=== PATIENT | female | born 2000 | race Caucasian/White ===

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

== ENCOUNTER 2020-06-21 08:51 | Emergency (ER) | payer OTHER ==
[2020-06-21 08:58] VITALS: BP 107/66; PULSE 83; RESP 18; TEMP 98.6
--- NOTE | 2020-06-21 09:18 | ED ---
General Adult HPI - General Chief complaint: Upper Respiratory Infection Stated complaint: Upper respiratory Time Seen by Provider: 06/21/20 08:58 Source: patient, RN notes reviewed Mode of arrival: ambulatory Limitations: no limitations - History of Present Illness Initial comments: Patient is a pleasant 20-year-old female presenting to the emergency department with concerns for upper respiratory symptoms. Symptoms been occurring around 3 days. Patient states she did have cold symptoms a week ago however those have resolved. Patient does complain of occasional cough with occasional yellow sputum. Patient has myalgias, more of her upper extremities and lower extremity. No dyspnea. No fevers. No history of chronic lung problems. - Related Data Home Medications Medication Instructions Recorded Confirmed Albuterol Inhaler (Mhu) [Ventolin 2 puff INHALATION RT-QID 09/10/18 09/10/18 Hfa Inhaler] Ibuprofen [Motrin Ib] 600 mg PO DAILY 09/10/18 09/10/18 Previous Rx's Medication Instructions Recorded Cefpodoxime Proxetil [Vantin] 200 mg PO Q12HR 10 Days #20 tab 10/03/18 Ondansetron Odt [Zofran Odt] 4 mg PO Q8HR PRN #12 tab 10/03/18 Nitrofurantoin Monohyd/M-Cryst 100 mg PO Q12HR #14 cap 04/06/19 [Macrobid] Amoxicillin/Potassium Clav 1 tab PO Q12HR #20 tab 10/24/19 [Augmentin 875-125 Tablet] Albuterol Sulfate [Albuterol 2 puff INHALATION Q6H PRN #1 06/21/20 Sulfate Hfa] inhaler Allergies Allergy/AdvReac Type Severity Reaction Status Date / Time bee venom protein (honey bee) Allergy Swelling Verified 06/21/20 08:57 Review of Systems ROS Statement: Those systems with pertinent positive or pertinent negative responses have been documented in the HPI. ROS Other: All systems not noted in ROS Statement are negative. Constitutional: Denies: fever Eyes: Denies: eye pain ENT: Denies: ear pain Respiratory: Reports: cough Cardiovascular: Denies: chest pain Endocrine: Reports: fatigue Gastrointestinal: Denies: abdominal pain Genitourinary: Denies: dysuria Musculoskeletal: Denies: back pain Skin: Denies: rash Neurological: Denies: weakness Past Medical History Past Medical History: No Reported History History of Any Multi-Drug Resistant Organisms: None Reported Past Surgical History: Tonsillectomy Past Psychological History: Bipolar, Depression, PTSD Smoking Status: Current every day smoker Past Alcohol Use History: Occasional Past Drug Use History: Marijuana General Exam Limitations: no limitations General appearance: alert, in no apparent distress Head exam: Present: normocephalic Eye exam: Present: normal appearance, PERRL ENT exam: Present: other (Mild pharyngeal cobblestoning) Neck exam: Present: normal inspection Respiratory exam: Present: normal lung sounds bilaterally Cardiovascular Exam: Present: regular rate, normal rhythm GI/Abdominal exam: Present: soft. Absent: tenderness Extremities exam: Present: normal inspection Neurological exam: Present: alert Psychiatric exam: Present: normal affect, normal mood Skin exam: Present: normal color Course Vital Signs 06/21/20 08:55 Temperature 98.6 F Pulse Rate 83 Respiratory 18 Rate Blood Pressure 107/66 O2 Sat by Pulse 98 Oximetry Medical Decision Making - Medical Decision Making Patient has refused testing for influenza and coronavirus. Patient reevaluated and resting comfortably in bed. Patient updated. Patient does request inhaler. - Radiology Data Radiology results: image reviewed (Chest x-ray shows no acute process) Disposition Clinical Impression: Bronchitis Disposition: HOME SELF-CARE Condition: Stable Instructions (If sedation given, give patient instructions): Acute Bronchitis (ED) Additional Instructions: Please follow-up with primary care physician in the next couple of days for recheck. Return for difficulty in breathing, uncontrolled fevers, worsening or changing symptoms or other concerns. Prescription for inhaler sent to [facility] Prescriptions: Albuterol Sulfate [Albuterol Sulfate Hfa] 2 puff INHALATION Q6H PRN #1 inhaler PRN Reason: Shortness Of Breath Is patient prescribed a controlled substance at d/c from ED?: No Referrals: Melquiades Aguilar Jr, DO [Primary Care Provider] - 1-2 days Time of Disposition: 10:17
--- NOTE | 2020-06-21 09:27 | XR ---
EXAMINATION TYPE: XR chest 2V DATE OF EXAM: 06/21/2020 COMPARISON: NONE TECHNIQUE: PA and lateral views submitted. HISTORY: Cough FINDINGS: The lungs are clear and there is no pneumothorax, pleural effusion, or focal pneumonia. Heart size normal. No overt failure. IMPRESSION: 1. No acute process.
== END 2020-06-21 10:34 | disposition home or self-care (01) ==
LOC: EC 08:51
DX: J40 Bronchitis, not specified as acute or chronic (principal); F17.200 Nicotine dependence, unspecified, uncomplicated; Z79.899 Other long term (current) drug therapy; Z79.1 Long term (current) use of non-steroidal anti-inflammatories (NSAID); Z91.030 Bee allergy status
CPT/HCPCS: 71046; 99283

== ENCOUNTER 2020-06-30 09:06 | Emergency (ER) | payer OTHER ==
[2020-06-30 09:18] VITALS: RESP 16
[2020-06-30] MEDS ORDERED: KETOROLAC 15 MG/ML 1 ML VIAL IVP STA (10:02)
--- NOTE | 2020-06-30 10:28 | ED ---
URI HPI - General Chief Complaint: Upper Respiratory Infection Stated Complaint: right side pain Time Seen by Provider: 06/30/20 09:36 Source: patient, RN notes reviewed, old records reviewed Mode of arrival: ambulatory Limitations: no limitations - History of Present Illness Initial Comments: 20 year old female with right rib pain after being diagnosed with brochitis last week. She was given inhaler. She reports no change in cough. She denies nause a, vomiting and no other complaints. She states she has no abdominal pain. Pt pain is worse with movement or taking a breath. - Related Data Home Medications Medication Instructions Recorded Confirmed Albuterol Sulfate [Proair Hfa] 2 puff INHALATION RT-QID PRN 06/30/20 06/30/20 Previous Rx's Medication Instructions Recorded Ibuprofen [Motrin] 600 mg PO Q8HR PRN #20 tab 06/30/20 methylPREDNISolone Dose Pack 4 mg PO DIRECTED #21 package 06/30/20 [Medrol Dose Pack] Allergies Allergy/AdvReac Type Severity Reaction Status Date / Time bee venom protein (honey bee) Allergy Swelling Verified 06/30/20 10:35 Review of Systems ROS Statement: Those systems with pertinent positive or pertinent negative responses have been documented in the HPI. ROS Other: All systems not noted in ROS Statement are negative. Past Medical History Past Medical History: No Reported History History of Any Multi-Drug Resistant Organisms: None Reported Past Surgical History: Tonsillectomy Past Psychological History: Bipolar, Depression, PTSD Smoking Status: Former smoker Past Alcohol Use History: Occasional Past Drug Use History: Marijuana General Exam - General Exam Comments Initial Comments: 20 year old female, no distress. Limitations: no limitations General appearance: alert, in no apparent distress Head exam: Present: atraumatic, normocephalic, normal inspection Eye exam: Present: normal appearance, PERRL, EOMI. Absent: scleral icterus, conjunctival injection, periorbital swelling ENT exam: Present: normal exam, mucous membranes moist Neck exam: Present: normal inspection. Absent: tenderness, meningismus, l ymphadenopathy Respiratory exam: Present: normal lung sounds bilaterally, other (rigt rib 9- 10). Absent: respiratory distress, wheezes, rales, rhonchi, stridor Cardiovascular Exam: Present: regular rate, normal rhythm, normal heart sounds. Absent: systolic murmur, diastolic murmur, rubs, gallop, clicks GI/Abdominal exam: Present: soft, normal bowel sounds. Absent: distended, tenderness, guarding, rebound, rigid Extremities exam: Present: normal inspection, full ROM, normal capillary refill. Absent: tenderness, pedal edema, joint swelling, calf tenderness Back exam: Present: normal inspection Neurological exam: Present: alert, oriented X3, CN II-XII intact Psychiatric exam: Present: normal affect, normal mood Course Vital Signs 06/30/20 06/30/20 09:15 12:00 Temperature 98.1 F 97.8 F Pulse Rate 84 78 Respiratory 16 16 Rate Blood Pressure 108/70 101/78 O2 Sat by Pulse 97 99 Oximetry Medical Decision Making - Medical Decision Making 20 year old female, CC of Rib pain after bronchitis. Pt has normal CXR and labs are normal. Discussed costochondritis diagnosis and she will be followed up with PCP. Pt will be given steroids and PCP follow up. - Lab Data Result diagrams: 06/30/20 10:14 06/30/20 10:14 Lab Results 06/30/20 06/30/20 06/30/20 Range/Units 10:14 10:14 10:14 WBC 11.8 H (4.0-11.0) k/uL RBC 4.97 (3.80-5.40) m/uL Hgb 13.7 (11.4-16.0) gm/dL Hct 42.0 (34.0-46.0) % MCV 84.5 (80.0-100.0) fL MCH 27.6 (25.0-35.0) pg MCHC 32.6 (31.0-37.0) g/dL RDW 12.7 (11.5-15.5) % Plt Count 464 H (150-450) k/uL Neutrophils % 74 % Lymphocytes % 18 % Monocytes % 5 % Eosinophils % 1 % Basophils % 0 % Neutrophils # 8.8 H (1.3-7.7) k/uL Lymphocytes # 2.1 (1.0-4.8) k/uL Monocytes # 0.6 (0-1.0) k/uL Eosinophils # 0.2 (0-0.7) k/uL Basophils # 0.1 (0-0.2) k/uL Sodium 138 (137-145) mmol/L Potassium 4.1 (3.5-5.1) mmol/L Chloride 105 (98-107) mmol/L Carbon Dioxide 27 (22-30) mmol/L Anion Gap 6 mmol/L BUN 12 (7-17) mg/dL Creatinine 0.58 (0.52-1.04) mg/dL Est GFR (CKD-EPI)AfAm >90 (>60 ml/min/1.73 sqM) Est GFR (CKD-EPI)NonAf >90 (>60 ml/min/1.73 sqM) Glucose 80 (74-99) mg/dL Calcium 9.8 (8.4-10.2) mg/dL Total Bilirubin 0.4 (0.2-1.3) mg/dL AST 18 (14-36) U/L ALT 10 (4-34) U/L Alkaline Phosphatase 75 (38-126) U/L Total Protein 6.9 (6.3-8.2) g/dL Albumin 4.0 (3.5-5.0) g/dL Urine Color Yellow Urine Appearance Cloudy H (Clear) Urine pH 6.5 (5.0-8.0) Ur Specific [place] 1.020 (1.001-1.035) Urine Protein Trace H (Negative) Urine Glucose (UA) Negative (Negative) Urine Ketones Negative (Negative) Urine Blood Negative (Negative) Urine Nitrite Negative (Negative) Urine Bilirubin Negative (Negative) Urine Urobilinogen <2.0 (<2.0) mg/dL Ur Leukocyte Esterase Moderate H (Negative) Urine WBC 7 H (0-5) /hpf Ur Squamous Epith Cells 17 H (0-4) /hpf Urine Bacteria Rare H (None) /hpf Urine Mucus Moderate H (None) /hpf Urine HCG, Qual (Not Detectd) 06/30/20 Range/Units 10:14 WBC (4.0-11.0) k/uL RBC (3.80-5.40) m/uL Hgb (11.4-16.0) gm/dL Hct (34.0-46.0) % MCV (80.0-100.0) fL MCH (25.0-35.0) pg MCHC (31.0-37.0) g/dL RDW (11.5-15.5) % Plt Count (150-450) k/uL Neutrophils % % Lymphocytes % % Monocytes % % Eosinophils % % Basophils % % Neutrophils # (1.3-7.7) k/uL Lymphocytes # (1.0-4.8) k/uL Monocytes # (0-1.0) k/uL Eosinophils # (0-0.7) k/uL Basophils # (0-0.2) k/uL Sodium (137-145) mmol/L Potassium (3.5-5.1) mmol/L Chloride (98-107) mmol/L Carbon Dioxide (22-30) mmol/L Anion Gap mmol/L BUN (7-17) mg/dL Creatinine (0.52-1.04) mg/dL Est GFR (CKD-EPI)AfAm (>60 ml/min/1.73 sqM) Est GFR (CKD-EPI)NonAf (>60 ml/min/1.73 sqM) Glucose (74-99) mg/dL Calcium (8.4-10.2) mg/dL Total Bilirubin (0.2-1.3) mg/dL AST (14-36) U/L ALT (4-34) U/L Alkaline Phosphatase (38-126) U/L Total Protein (6.3-8.2) g/dL Albumin (3.5-5.0) g/dL Urine Color Urine Appearance (Clear) Urine pH (5.0-8.0) Ur Specific [place] (1.001-1.035) Urine Protein (Negative) Urine Glucose (UA) (Negative) Urine Ketones (Negative) Urine Blood (Negative) Urine Nitrite (Negative) Urine Bilirubin (Negative) Urine Urobilinogen (<2.0) mg/dL Ur Leukocyte Esterase (Negative) Urine WBC (0-5) /hpf Ur Squamous Epith Cells (0-4) /hpf Urine Bacteria (None) /hpf Urine Mucus (None) /hpf Urine HCG, Qual Not Detected (Not Detectd) - Radiology Data Radiology results: report reviewed CXR is negative for acute process. Disposition Clinical Impression: Pleurisy, Rib pain on right side, Hx of bronchitis Disposition: HOME SELF-CARE Condition: Good Instructions (If sedation given, give patient instructions): Upper Respiratory Infection (ED) Additional Instructions: Take medications as prescribed. Patient should gentle stretching. Follow up with primary care doctor. Return to the ED if any alarming signs or symptoms oc cur. Prescriptions: methylPREDNISolone Dose Pack [Medrol Dose Pack] 4 mg PO DIRECTED #21 package Ibuprofen [Motrin] 600 mg PO Q8HR PRN #20 tab PRN Reason: Pain Is patient prescribed a controlled substance at d/c from ED?: No Referrals: Melquiades Aguilar Jr, DO [Primary Care Provider] - 1-2 days Time of Disposition: 11:39
--- NOTE | 2020-06-30 10:39 | XR ---
EXAMINATION TYPE: XR chest 2V DATE OF EXAM: 06/30/2020 COMPARISON: 06/21/2020 HISTORY: 20-year-old female right rib pain TECHNIQUE: PA and lateral views FINDINGS: The cardiomediastinal silhouette, aorta, and pulmonary vasculature are within normal limits. Lungs an d pleural spaces are clear. IMPRESSION: No acute cardiopulmonary process.
[2020-06-30 10:55] LABS: Basophils # (A) 0.1 k/uL (0-0.2); Basophils % (A) 0 %; Eosinophils # (A) 0.2 k/uL (0-0.7); Eosinophils % (A) 1 %; HGB 13.7 gm/dL (11.4-16.0); Lymphocytes # (A) 2.1 k/uL (1.0-4.8); Lymphocytes % (A) 18 %; MCH 27.6 pg (25.0-35.0); MCHC 32.6 g/dL (31.0-37.0); MCV 84.5 fL (80.0-100.0); Mean Platelet Volume 8.5; Monocytes # (A) 0.6 k/uL (0-1.0); Monocytes % (A) 5 %; Neutrophils # (A) 8.8 k/uL (1.3-7.7); Neutrophils % (A) 74 %; Platelet Count 464 k/uL (150-450); RBC 4.97 m/uL (3.80-5.40); RDW 12.7 % (11.5-15.5); WBC 11.8 k/uL (4.0-11.0)
[2020-06-30 10:58] LABS: Appearance,Urine Cloudy (Clear); Bacteria,Urine Rare /hpf; Bilirubin,Urine Negative (Negative); Blood,Urine Negative (Negative); Color,Urine Yellow; Glucose,Urine (UA) Negative (Negative); Ketones,Urine Negative (Negative); Leukocyte Esterase,Urine Moderate (Negative); Mucus,Urine Moderate /hpf; Nitrite,Urine Negative (Negative); PH, Urine 6.5 (5.0-8.0); Protein,Urine Trace (Negative); Squamous Epithelial Cell,Urine 17 /hpf (0-4); Urobilinogen,Urine <2.0 mg/dL (<2.0); WBC,Urine 7 /hpf (0-5)
[2020-06-30 11:05] LABS: Potassium 4.1 mmol/L (3.5-5.1)
[2020-06-30 11:06] LABS: ALT 10 U/L (4-34); AST 18 U/L (14-36); African American GFR (CKD) >90 (>60 ml/min/1.73 sqM); Alkaline Phosphatase 75 U/L (38-126); Anion Gap 6 mmol/L; Blood Urea Nitrogen 12 mg/dL (7-17); Calcium 9.8 mg/dL (8.4-10.2); Carbon Dioxide 27 mmol/L (22-30); Chloride 105 mmol/L (98-107); Glucose 80 mg/dL (74-99); Non-African American GFR(CKD) >90 (>60 ml/min/1.73 sqM); Sodium 138 mmol/L (137-145); Total Bilirubin 0.4 mg/dL (0.2-1.3); Total Protein 6.9 g/dL (6.3-8.2)
[2020-06-30 12:01] VITALS: BP 101/78; PULSE 78; TEMP 97.8
== END 2020-06-30 12:00 | disposition home or self-care (01) ==
LOC: EC 09:06
DX: R09.1 Pleurisy (principal); R07.81 Pleurodynia; Z87.09 Personal history of other diseases of the respiratory system; Z91.030 Bee allergy status; Z87.891 Personal history of nicotine dependence
CPT/HCPCS: 36415; 80053; 85025; 81001; 81025; 71046; 99284; 96374; J1885

== ENCOUNTER 2020-11-09 12:44 | Inpatient (IN) | payer MEDICAID, OTHER ==
--- NOTE | 2020-11-09 13:12 | ED ---
General Adult HPI - General Chief complaint: Psychiatric Symptoms Stated complaint: Overdose/Mental Health Time Seen by Provider: 11/09/20 12:56 Source: patient - History of Present Illness Initial comments: Dictation was produced using [employer] dictation software. please excuse any grammatical, word or spelling errors. This patient was cared for during a federal and state declared state of emerge ncy secondary to Covid 19 Chief Complaint: 20-year-old female presents with overdose History of Present Illness: Patient is a 20-year-old female she has reported history of schizophrenia and depression. Patient states one hour ago she took a handful of Flexeril pills to try to harm herself. At she's been having a lot of personal stress. No homicidal ideation. No auditory or visual hallucinations. She does not know exactly what the dosage of her pills were that she says there are 5 mg pills. She doesn't examination to purchase a handful. The ROS documented in this emergency department record has been reviewed and confirmed by me. Those systems with pertinent positive or negative responses have been documented in the HPI. All other systems are other negative and/or noncontributory. PHYSICAL EXAM: General Impression: Alert and oriented x3, not in acute distress HEENT: Normocephalic atraumatic, extra-ocular movements intact, pupils equal and reactive to light bilaterally, mucous membranes moist. Cardiovascular: Heart regular rate and rhythm Chest: Able to complete full sentences, no retractions, no tachypnea Abdomen: abdomen soft, non-tender, non-distended, no organomegaly Musculoskeletal: Pulses present and equal in all extremities, no peripheral edema Motor: no focal deficits noted Neurological: CN II-XII grossly intact, no focal motor or sensory deficits noted Skin: Intact with no visualized rashes Psych: Normal affect and mood ED course: 20 y Old female presents with cyclobenzaprine overdose. Patient is well-appearing at bedside. She does not have any symptoms to suggest toxidrome. Lavatory evaluation obtained. CBC unremarkable. Metabolic panel shows mild acidosis with a bicarb of 17. Gap is 12. Urinalysis is contaminated but with 67 white blood cells. Urine drug screen is positive for marijuana. Covid 19 is negative. Urine hCG is negative. Poison control was contacted recommended checking a repeat EKG at 6 PM prior to medical clearance. EKG interpretation: Ventricular rate 97, normal sinus rhythm,. Interval 122, QRS 84, QTC 441. No MO prolongation, no QTC prolongation, no ST or T-wave changes noted. . Overall, this EKG is unremarkable Six-hour EKG was obtained showing no acute processes. Patient medically cleared for EPS evaluation. Patient was evaluated by EPS. Patient be admitted to inpatient psychiatry. - Related Data Home Medications Medication Instructions Recorded Confirmed Albuterol Sulfate [Proair Hfa] 2 puff INHALATION RT-QID PRN 06/30/20 06/30/20 Previous Rx's Medication Instructions Recorded Ibuprofen [Motrin] 600 mg PO Q8HR PRN #20 tab 06/30/20 methylPREDNISolone Dose Pack 4 mg PO DIRECTED #21 package 06/30/20 [Medrol Dose Pack] Allergies Allergy/AdvReac Type Severity Reaction Status Date / Time bee venom protein (honey bee) Allergy Swelling Verified 11/09/20 14:49 Review of Systems ROS Statement: Those systems with pertinent positive or pertinent negative responses have been documented in the HPI. ROS Other: All systems not noted in ROS Statement are negative. Past Medical History Past Medical History: No Reported History History of Any Multi-Drug Resistant Organisms: None Reported Past Surgical History: Tonsillectomy Past Psychological History: Bipolar, Depression, PTSD Smoking Status: Former smoker Past Alcohol Use History: Occasional Past Drug Use History: Marijuana Course Vital Signs 11/09/20 11/09/20 11/09/20 13:00 13:30 14:50 Temperature 98.0 F Pulse Rate 130 H 110 H 100 Respiratory 18 20 Rate Blood Pressure 145/80 128/78 O2 Sat by Pulse 96 100 Oximetry 11/09/20 11/09/20 11/09/20 15:30 16:30 17:59 Temperature 97.8 F Pulse Rate 110 H 105 H 80 Respiratory 20 20 16 Rate Blood Pressure 112/80 108/78 O2 Sat by Pulse 98 98 Oximetry Medical Decision Making - Lab Data Result diagrams: 11/09/20 13:50 11/09/20 13:50 Lab Results 11/09/20 11/09/20 11/09/20 Range/Units 13:50 13:50 13:50 WBC 9.6 (4.0-11.0) k/uL RBC 5.02 (3.80-5.40) m/uL Hgb 13.7 (11.4-16.0) gm/dL Hct 40.2 (34.0-46.0) % MCV 80.1 (80.0-100.0) fL MCH 27.4 (25.0-35.0) pg MCHC 34.2 (31.0-37.0) g/dL RDW 13.6 (11.5-15.5) % Plt Count 296 (150-450) k/uL MPV 9.2 Neutrophils % 75 % Lymphocytes % 18 % Monocytes % 5 % Eosinophils % 1 % Basophils % 0 % Neutrophils # 7.2 (1.3-7.7) k/uL Lymphocytes # 1.7 (1.0-4.8) k/uL Monocytes # 0.4 (0-1.0) k/uL Eosinophils # 0.1 (0-0.7) k/uL Basophils # 0.0 (0-0.2) k/uL Sodium (137-145) mmol/L Potassium (3.5-5.1) mmol/L Chloride (98-107) mmol/L Carbon Dioxide (22-30) mmol/L Anion Gap mmol/L BUN (7-17) mg/dL Creatinine (0.52-1.04) mg/dL Est GFR (CKD-EPI)AfAm (>60 ml/min/1.73 sqM) Est GFR (CKD-EPI)NonAf (>60 ml/min/1.73 sqM) Glucose (74-99) mg/dL Calcium (8.4-10.2) mg/dL Total Bilirubin (0.2-1.3) mg/dL AST (14-36) U/L ALT (4-34) U/L Alkaline Phosphatase (38-126) U/L Total Protein (6.3-8.2) g/dL Albumin (3.5-5.0) g/dL Urine Color Urine Appearance (Clear) Urine pH (5.0-8.0) Ur Specific [place] (1.001-1.035) Urine Protein (Negative) Urine Glucose (UA) (Negative) Urine Ketones (Negative) Urine Blood (Negative) Urine Nitrite (Negative) Urine Bilirubin (Negative) Urine Urobilinogen (<2.0) mg/dL Ur Leukocyte Esterase (Negative) Urine RBC (0-5) /hpf Urine WBC (0-5) /hpf Ur Squamous Epith Cells (0-4) /hpf Urine Bacteria (None) /hpf Urine Mucus (None) /hpf Urine HCG, Qual Not Detected (Not Detectd) Salicylates mg/dL Urine Opiates Screen Not Detected (NotDetected) Ur Oxycodone Screen Not Detected (NotDetected) Urine Methadone Screen Not Detected (NotDetected) Ur Propoxyphene Screen Not Detected (NotDetected) Acetaminophen ug/mL Ur Barbiturates Screen Not Detected (NotDetected) U Tricyclic Antidepress Not Detected (NotDetected) Ur Phencyclidine Scrn Not Detected (NotDetected) Ur Amphetamines Screen Not Detected (NotDetected) U Methamphetamines Scrn Not Detected (NotDetected) U Benzodiazepines Scrn Not Detected (NotDetected) Urine Cocaine Screen Not Detected (NotDetected) U Marijuana (THC) Screen Detected H (NotDetected) Serum Alcohol mg/dL Coronavirus (PCR) (Not Detectd) 11/09/20 11/09/20 11/09/20 Range/Units 13:50 13:50 14:21 WBC (4.0-11.0) k/uL RBC (3.80-5.40) m/uL Hgb (11.4-16.0) gm/dL Hct (34.0-46.0) % MCV (80.0-100.0) fL MCH (25.0-35.0) pg MCHC (31.0-37.0) g/dL RDW (11.5-15.5) % Plt Count (150-450) k/uL MPV Neutrophils % % Lymphocytes % % Monocytes % % Eosinophils % % Basophils % % Neutrophils # (1.3-7.7) k/uL Lymphocytes # (1.0-4.8) k/uL Monocytes # (0-1.0) k/uL Eosinophils # (0-0.7) k/uL Basophils # (0-0.2) k/uL Sodium 137 (137-145) mmol/L Potassium 3.8 (3.5-5.1) mmol/L Chloride 108 H (98-107) mmol/L Carbon Dioxide 17 L (22-30) mmol/L Anion Gap 12 mmol/L BUN 9 (7-17) mg/dL Creatinine 0.55 (0.52-1.04) mg/dL Est GFR (CKD-EPI)AfAm >90 (>60 ml/min/1.73 sqM) Est GFR (CKD-EPI)NonAf >90 (>60 ml/min/1.73 sqM) Glucose 104 H (74-99) mg/dL Calcium 9.8 (8.4-10.2) mg/dL Total Bilirubin 0.6 (0.2-1.3) mg/dL AST 19 (14-36) U/L ALT 14 (4-34) U/L Alkaline Phosphatase 59 (38-126) U/L Total Protein 7.4 (6.3-8.2) g/dL Albumin 4.6 (3.5-5.0) g/dL Urine Color Light Yellow Urine Appearance Cloudy H (Clear) Urine pH 6.0 (5.0-8.0) Ur Specific [place] 1.006 (1.001-1.035) Urine Protein Trace H (Negative) Urine Glucose (UA) Negative (Negative) Urine Ketones Trace H (Negative) Urine Blood Large H (Negative) Urine Nitrite Negative (Negative) Urine Bilirubin Negative (Negative) Urine Urobilinogen <2.0 (<2.0) mg/dL Ur Leukocyte Esterase Large H (Negative) Urine RBC 17 H (0-5) /hpf Urine WBC 67 H (0-5) /hpf Ur Squamous Epith Cells 16 H (0-4) /hpf Urine Bacteria Rare H (None) /hpf Urine Mucus Rare H (None) /hpf Urine HCG, Qual (Not Detectd) Salicylates <1.0 mg/dL Urine Opiates Screen (NotDetected) Ur Oxycodone Screen (NotDetected) Urine Methadone Screen (NotDetected) Ur Propoxyphene Screen (NotDetected) Acetaminophen <10.0 ug/mL Ur Barbiturates Screen (NotDetected) U Tricyclic Antidepress (NotDetected) Ur Phencyclidine Scrn (NotDetected) Ur Amphetamines Screen (NotDetected) U Methamphetamines Scrn (NotDetected) U Benzodiazepines Scrn (NotDetected) Urine Cocaine Screen (NotDetected) U Marijuana (THC) Screen (NotDetected) Serum Alcohol <10 mg/dL Coronavirus (PCR) Not Detected (Not Detectd) Disposition Clinical Impression: Overdose, Suicidal overdose Disposition: ADMITTED IP TO THIS [facility] Condition: Fair Referrals: None,Stated [Primary Care Provider] - 1-2 days Decision Time: 20:18
[2020-11-09 14:08] LABS: Basophils % (A) 0 %; Eosinophils # (A) 0.1 k/uL (0-0.7); Eosinophils % (A) 1 %; HCT 40.2 % (34.0-46.0); HGB 13.7 gm/dL (11.4-16.0); Lymphocytes # (A) 1.7 k/uL (1.0-4.8); Lymphocytes % (A) 18 %; MCH 27.4 pg (25.0-35.0); MCHC 34.2 g/dL (31.0-37.0); MCV 80.1 fL (80.0-100.0); Mean Platelet Volume 9.2; Monocytes # (A) 0.4 k/uL (0-1.0); Monocytes % (A) 5 %; Neutrophils # (A) 7.2 k/uL (1.3-7.7); Neutrophils % (A) 75 %; Platelet Count 296 k/uL (150-450); RBC 5.02 m/uL (3.80-5.40); RDW 13.6 % (11.5-15.5); WBC 9.6 k/uL (4.0-11.0)
[2020-11-09 14:17] LABS: ALT 14 U/L (4-34); AST 19 U/L (14-36); Acetaminophen <10.0 ug/mL; African American GFR (CKD) >90 (>60 ml/min/1.73 sqM); Albumin 4.6 g/dL (3.5-5.0); Alcohol <10 mg/dL; Alkaline Phosphatase 59 U/L (38-126); Anion Gap 12 mmol/L; Appearance,Urine Cloudy (Clear); Bacteria,Urine Rare /hpf; Bilirubin,Urine Negative (Negative); Blood Urea Nitrogen 9 mg/dL (7-17); Blood,Urine Large (Negative); Calcium 9.8 mg/dL (8.4-10.2); Carbon Dioxide 17 mmol/L (22-30); Chloride 108 mmol/L (98-107); Color,Urine Light Yellow; Glucose 104 mg/dL (74-99); Glucose,Urine (UA) Negative (Negative); Ketones,Urine Trace (Negative); Leukocyte Esterase,Urine Large (Negative); Mucus,Urine Rare /hpf; Nitrite,Urine Negative (Negative); Non-African American GFR(CKD) >90 (>60 ml/min/1.73 sqM); Potassium 3.8 mmol/L (3.5-5.1); Protein,Urine Trace (Negative); RBC,Urine 17 /hpf (0-5); Salicylate <1.0 mg/dL; Sodium 137 mmol/L (137-145); Specific Gravity,Urine 1.006 (1.001-1.035); Squamous Epithelial Cell,Urine 16 /hpf (0-4); Total Bilirubin 0.6 mg/dL (0.2-1.3); Total Protein 7.4 g/dL (6.3-8.2); Urobilinogen,Urine <2.0 mg/dL (<2.0); WBC,Urine 67 /hpf (0-5)
[2020-11-09 14:20] LABS: Amphetamine Screen,Urine Not Detected (NotDetected); Barbiturate Screen,Urine Not Detected (NotDetected); Benzodiazepines Screen,Urine Not Detected (NotDetected); Cocaine Screen,Urine Not Detected (NotDetected); Methadone Screen, Urine Not Detected (NotDetected); Opiate Screen,Urine Not Detected (NotDetected); Oxycodone Screen, Urine Not Detected (NotDetected); Phencyclidine Screen,Urine Not Detected (NotDetected); Tricyclic Antidepressant,Urine Not Detected (NotDetected); Urn Cannabinoid Scrn Detected (NotDetected)
[2020-11-09] MEDS ORDERED: MAGNESIUM HYDROXIDE 2,400 MG/10 ML CUP PO PRN (21:51)
[2020-11-09] MEDS ORDERED: LORazepam 1 MG TAB PO PRN (21:51)
[2020-11-09] MEDS ORDERED: MAG HYDROX/AL HYDROX/SIMETH 30 ML CUP PO PRN (21:51)
[2020-11-09] MEDS ORDERED: LORazepam 2 MG/ML INJ IM PRN (21:54)
[2020-11-09] MEDS ORDERED: HALOPERIDOL LACTATE 5 MG/ML 1 ML VIAL IM PRN (21:54)
[2020-11-09] MEDS ORDERED: ALBUTEROL HFA INHALER INHALATION PRN (21:55)
[2020-11-10 08:13] LABS: Cholesterol 170 mg/dL (<200); HDL Cholesterol 63 mg/dL (40-60); LDL Cholesterol,Calculated 95 mg/dL (0-99); Triglycerides 62 mg/dL (<150)
[2020-11-10] MEDS ORDERED: MELATONIN 5 MG TABLET PO PRN (11:29)
[2020-11-10] MEDS ORDERED: hydrOXYzine pamoate 25 MG CAP PO PRN (11:30)
--- NOTE | 2020-11-10 11:43 | P.HP ---
Psychiatric H&P - . H&P Date: 11/10/20 History & Physical: Allergies Allergy/AdvReac Type Severity Reaction Status Date / Time bee venom protein (honey bee) Allergy Swelling Verified 11/10/20 02:06 Vital Signs Temp 97.4 F L 11/10/20 06:30 Pulse 132 H 11/10/20 06:30 Resp 16 11/10/20 06:30 BP 118/57 11/10/20 06:30 Pulse Ox 98 11/09/20 21:00 Intake & Output 11/09/20 11/10/20 11/10/20 18:59 06:59 18:59 Weight 72.575 kg 74.1 kg Laboratory Last Values WBC 9.6 k/uL (4.0-11.0) 11/09/20 13:50 RBC 5.02 m/uL (3.80-5.40) 11/09/20 13:50 Hgb 13.7 gm/dL (11.4-16.0) 11/09/20 13:50 Hct 40.2 % (34.0-46.0) 11/09/20 13:50 MCV 80.1 fL (80.0-100.0) 11/09/20 13:50 MCH 27.4 pg (25.0-35.0) 11/09/20 13:50 MCHC 34.2 g/dL (31.0-37.0) 11/09/20 13:50 RDW 13.6 % (11.5-15.5) 11/09/20 13:50 Plt Count 296 k/uL (150-450) 11/09/20 13:50 MPV 9.2 11/09/20 13:50 Neutrophils % 75 % 11/09/20 13:50 Lymphocytes % 18 % 11/09/20 13:50 Monocytes % 5 % 11/09/20 13:50 Eosinophils % 1 % 11/09/20 13:50 Basophils % 0 % 11/09/20 13:50 Neutrophils # 7.2 k/uL (1.3-7.7) 11/09/20 13:50 Lymphocytes # 1.7 k/uL (1.0-4.8) 11/09/20 13:50 Monocytes # 0.4 k/uL (0-1.0) 11/09/20 13:50 Eosinophils # 0.1 k/uL (0-0.7) 11/09/20 13:50 Basophils # 0.0 k/uL (0-0.2) 11/09/20 13:50 Sodium 137 mmol/L (137-145) 11/09/20 13:50 Potassium 3.8 mmol/L (3.5-5.1) 11/09/20 13:50 Chloride 108 mmol/L (98-107) H 11/09/20 13:50 Carbon Dioxide 17 mmol/L (22-30) L 11/09/20 13:50 Anion Gap 12 mmol/L 11/09/20 13:50 BUN 9 mg/dL (7-17) 11/09/20 13:50 Creatinine 0.55 mg/dL (0.52-1.04) 11/09/20 13:50 Est GFR (CKD-EPI)AfAm >90 (>60 ml/min/1.73 sqM) 11/09/20 13:50 Est GFR (CKD-EPI)NonAf >90 (>60 ml/min/1.73 sqM) 11/09/20 13:50 Glucose 104 mg/dL (74-99) H 11/09/20 13:50 Calcium 9.8 mg/dL (8.4-10.2) 11/09/20 13:50 Total Bilirubin 0.6 mg/dL (0.2-1.3) 11/09/20 13:50 AST 19 U/L (14-36) 11/09/20 13:50 ALT 14 U/L (4-34) 11/09/20 13:50 Alkaline Phosphatase 59 U/L (38-126) 11/09/20 13:50 Total Protein 7.4 g/dL (6.3-8.2) 11/09/20 13:50 Albumin 4.6 g/dL (3.5-5.0) 11/09/20 13:50 Triglycerides 62 mg/dL (<150) 11/10/20 06:25 Cholesterol 170 mg/dL (<200) 11/10/20 06:25 LDL Cholesterol, Calc 95 mg/dL (0-99) 11/10/20 06:25 HDL Cholesterol 63 mg/dL (40-60) H 11/10/20 06:25 Urine Color Light Yellow 11/09/20 13:50 Urine Appearance Cloudy (Clear) H 11/09/20 13:50 Urine pH 6.0 (5.0-8.0) 11/09/20 13:50 Ur Specific [place] 1.006 (1.001-1.035) 11/09/20 13:50 Urine Protein Trace (Negative) H 11/09/20 13:50 Urine Glucose (UA) Negative (Negative) 11/09/20 13:50 Urine Ketones Trace (Negative) H 11/09/20 13:50 Urine Blood Large (Negative) H 11/09/20 13:50 Urine Nitrite Negative (Negative) 11/09/20 13:50 Urine Bilirubin Negative (Negative) 11/09/20 13:50 Urine Urobilinogen <2.0 mg/dL (<2.0) 11/09/20 13:50 Ur Leukocyte Esterase Large (Negative) H 11/09/20 13:50 Urine RBC 17 /hpf (0-5) H 11/09/20 13:50 Urine WBC 67 /hpf (0-5) H 11/09/20 13:50 Ur Squamous Epith Cells 16 /hpf (0-4) H 11/09/20 13:50 Urine Bacteria Rare /hpf (None) H 11/09/20 13:50 Urine Mucus Rare /hpf (None) H 11/09/20 13:50 Urine HCG, Qual Not Detected (Not Detectd) 11/09/20 13:50 Salicylates <1.0 mg/dL 11/09/20 13:50 Urine Opiates Screen Not Detected (NotDetected) 11/09/20 13:50 Ur Oxycodone Screen Not Detected (NotDetected) 11/09/20 13:50 Urine Methadone Screen Not Detected (NotDetected) 11/09/20 13:50 Ur Propoxyphene Screen Not Detected (NotDetected) 11/09/20 13:50 Acetaminophen <10.0 ug/mL 11/09/20 13:50 Ur Barbiturates Screen Not Detected (NotDetected) 11/09/20 13:50 U Tricyclic Antidepress Not Detected (NotDetected) 11/09/20 13:50 Ur Phencyclidine Scrn Not Detected (NotDetected) 11/09/20 13:50 Ur Amphetamines Screen Not Detected (NotDetected) 11/09/20 13:50 U Methamphetamines Scrn Not Detected (NotDetected) 11/09/20 13:50 U Benzodiazepines Scrn Not Detected (NotDetected) 11/09/20 13:50 Urine Cocaine Screen Not Detected (NotDetected) 11/09/20 13:50 U Marijuana (THC) Screen Detected (NotDetected) H 11/09/20 13:50 Serum Alcohol <10 mg/dL 11/09/20 13:50 Coronavirus (PCR) Not Detected (Not Detectd) 11/09/20 14:21 11/10/20 11:08 IDENTIFYING DATA: Patient is a 20-year-old female who currently lives in a house with a roommate's single has no kids and is unemployed and about to attend college. HPI: Patient presented to the hospital yesterday after an overdose/suicide attempt. Patient apparently had taken a "handful of Flexeril" according to ER report in a suicide attempt. Patient was endorsing at that time personal stres sors in her life. Patient's UDS is positive for marijuana. Patient was petitioned by a credit risk officer who claims that the patient was "laying on the ground unable to move. She stated she took 30 cyclobenzaprine and "didn't want to be here anymore". The patient also stated that patient was "attempting to kill herself, she stated she could not feel her face her legs". Patient was admitted to the mental health unit involuntarily and agreeable to speak with check writer this morning. Patient appeared to be fairly tearful and argumentative with check writer. She was fairly guarded/evasive and was denying the overdose being a suicide attempt. She repeatedly stated that "you can call my therapist or my family members and they'll tell you I wasn't trying to kill myself". She claimed that she was in an argument with her biological mother as she has "resentment towards her" and also spoke of abandonment issues that she is dealing with as she claims that her mother had left her in the past. She states that she was in foster care for 6 years. She also claims that she borrowed money from her mother and when her mother asked her to pay it back she stated that "I don't have any money to pay her". She claims that she was arguing with her over the phone and then after hanging up the phone she saw her roommates Flexeril bottle and took a handful of pills and then claims that she called the police afterwards. She states that "it was a stupid decision and I was trying to teach my mother a lesson". She states that she is not on any medications currently however states that her psychiatrist has prescribed her medications and it is "waiting for me and the pharmacy". She states that she is feeling anxious and depressed. She repeatedly minimized her symptoms and was tearful and demanding discharge several times during conversation. She states that her sleep is "fine". She admits to guilt. Patient denies any suicidal or homicidal ideations intent or plan. At this time patient denies any auditory or visual hallucinations. Patient denies any flight of ideas racing thoughts and increased in goal directed behavior. Patient admits to using marijuana frequently and denies any other recreational drug use including cigarettes. PAST PSYCHIATRIC HISTORY: Patient states that she has a history of depression and anxiety. Patient claims that she is on psychiatric medications that was pre scribed by her psychiatrist Dr. Florez however states that she does not know which medications they are and she has not taken them yet as they are waiting in the pharmacy. Patient denies any previous psychiatric hospitalizations. Patient denies any history of suicide attempts in the past. PMH: Asthma ALLERGIES: as per EMR CHEMICAL DEPENDENCY HISTORY: as per HPI FAMILY PSYCHIATRIC/SUBSTANCE USE HISTORY: denies SOCIAL HISTORY: Patient was born and raised in [place]. 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 She states that she currently lives in a house with a roommate's single has no kids and is currently unemployed. She states that she was in foster care for 6 years growing up. MENTAL STATUS EXAM: General Appearance: Patient appears to be stated age, wears glasses, is alert, tearful and uncooperative/evasive. Patient appears to have poor hygiene and grooming. Behavior: Patient is seated without any agitated behavior. Patient is tearful and demanding discharge. Speech: Patient's speech is fluent and nonpressured. Loud at times. Mood/Affect: Patient reports their mood is depressed and anxious, affect is con gruent and tearful Suicidality/Homicidality: Patient denies having any homicidal ideation intent or plan. Denies any suicidal ideations intent or plan Perceptions: Patient denies any visual hallucinations and denies any auditory hallucinations Though content/process: Minimizes her symptoms, guarded/evasive. Denying any paranoia or delusions. Demanding discharge. Memory and concentration: AOX3, grossly intact for the purposes of this session. Can spell "WORLD" backwards Judgment and insight: poor/impulsive STRENGTHS/WEAKNESSES: strength is that patient is resilient. Weakness is that patient has poor judgment and is impulsive INTELLECT: average IMPRESSIONS: Major depressive disorder, without psychotic features Cluster B personality traits Cannabis use disorder Anxiety disorder unspecified PLAN: -Patient is admitted under involuntary status to MHU for stabilization of psychiatric symptoms and safety. Patient has signed medication consent form and is placed in patient's chart. A second certification was completed and along with petition will be filed for court. -Medications : Will start patient on Zoloft 50 mg for mood/anxiety. Vistaril prn for anxiety. Melatonin 5mg qhs for insomnia -Ativan and Haldol PRN for agitation/aggression -Patient was counselled on substance abuse and desired to cut back on use -Patient was informed of the risks, benefits and side effects of the medication and patient verbally consented to taking the medications. Patient signed med consent form and was placed in chart. -Internal Medicine consult to perform medical evaluation and physical. -NRT - not needed as patient does not smoke. -SW on board for discharge planning. Encourage patient to participate in groups to work on coping skills. Will await deferral and court date.
[2020-11-10] MEDS: SERTRALINE 50 MG TAB PO SCH (11:57)
[2020-11-10] MEDS: ACETAMINOPHEN TAB 325 MG TAB PO PRN (16:34)
--- NOTE | 2020-11-11 00:09 | P.CONS ---
History of Present Illness - Reason for Consult Consult date: 11/11/20 - History of Present Illness Patient is a 20-year-old female with a PMH of bipolar disorder, depression, and PTSD who was brought into the emergency room after a suicide attempt by ingesting a handful Flexeril's. Patient was admitted to the mental health unit where she was seen and evaluated. Patient reports that she had been under a lot of stress and that she doesn't recall the exact amount of pills she took. In the emergency room, EKG had revealed normal sinus rhythm at 63 bpm with no ischemic ST/T-wave changes noted as reviewed by me. Laboratory evaluation was also reviewed and remarkable for a CO2 of 17 and an abnormal UA. The patient denied chest pain, shortness of breath, urinary complaints, abdominal pain, diarrhea, cough, fever, chills, nausea, vomiting. Review of Systems Pertinent positives and negatives as discussed in HPI, a complete review of systems was performed and all other systems are negative. Past Medical History Past Medical History: No Reported History History of Any Multi-Drug Resistant Organisms: None Reported Past Surgical History: Tonsillectomy Smoking Status: Current some day smoker Medications and Allergies Home Medications Medication Instructions Recorded Confirmed Type Albuterol Sulfate [Proair Hfa] 2 puff INHALATION RT-QID PRN 06/30/20 06/30/20 History Ibuprofen [Motrin] 600 mg PO Q8HR PRN #20 tab 06/30/20 Rx methylPREDNISolone Dose Pack 4 mg PO DIRECTED #21 package 06/30/20 Rx [Medrol Dose Pack] Allergies Allergy/AdvReac Type Severity Reaction Status Date / Time bee venom protein (honey bee) Allergy Swelling Verified 11/10/20 02:06 Physical Exam Vitals: Vital Signs Temp Pulse Resp BP 11/10/20 18:22 97.5 F L 11/10/20 06:30 97.4 F L 132 H 16 118/57 General: non toxic, no distress, appears at stated age, overweight Derm: no unusual rashes/lesions no unusual ecchymoses, warm, dry Head: atraumatic, normocephalic, symmetric Eyes: EOMI, no lid lag, anicteric sclera, pupils equal round reactive to light ENT: Nose and ears atraumatic, no thrush, no pharyngeal erythema Neck: No thyromegaly, no cervical lymphadenopathy, trachea midline, supple Mouth: no lip lesion, mucus membranes moist Cardiovascular: S1S2 reg, no murmur, positive posterior tibial pulse bilateral, no edema, capillary refill less than 2 seconds Lungs: CTA bilateral, no rhonchi, no rales , no accessory muscle use Abdominal: soft, nontender to palpation, no guarding, no appreciable organomegaly, normal bowel sounds Ext: no gross muscle atrophy, muscle strength 5 out of 5 in all 4 extremities grossly, no contractures, Neuro: CN II-XI grossly intact, light touch intact all 4 extremities, finger to nose within normal limits, Psych: Alert, oriented, flat affect Results CBC & Chem 7: 11/09/20 13:50 11/09/20 13:50 Labs: Abnormal Lab Results - Last 24 Hours (Table) 11/10/20 Range/Units 06:25 HDL Cholesterol 63 H (40-60) mg/dL Assessment and Plan Plan: Flexeril overdose -Patient appears to be doing well at this time -Continue to monitor for now Abnormal UA -Patient denied urinary complaints -Hold off on antibiotics at this time Depression and suicidal ideation -As per psychiatry Thank you for allowing us to participate in the care of this patient. We will follow peripherally. Do not hesitate to contact us with questions. Someone can be reached from the [facility] hospitalist group at all hours of the day at [phone].
[2020-11-11] MEDS: SERTRALINE 50 MG TAB PO SCH (08:12)
--- NOTE | 2020-11-11 09:13 | P.PN ---
Progress Note - Text Progress Note Date: 11/11/20 Interval History: Patient was seen [wandering the hallways right before entering into goalsetting group this morning] and was directable and agreeable to speak with tag writer in the office. Patient appears to be constricted in her affect today and less tearful. She was fairly concrete with her answers however was attempting to cooperate more during the interview. She states that she spoke with her mother who was trying to give her encouraging words about being in the hospital. She states th at she has been trying to reflect back on what happened and continues to claim that "I wasn't trying to kill myself". She states that "I can see why people would think that". She claims that her mood is still depressed however has been gradually improving. She states that she has experienced mild improvement in her anxiety. She claims that she has been trying to go to groups and participate as best as she can. She claims that she'll be speaking with a screen machine operator today about her treatment. She states that she was able to sleep better last night on the melatonin. At this time patient denies any suicidal or homical ideations, intent or plan. Patient denies any auditory, visual hallucinations and denies any paranoia or delusions. Patient denies any side effects from the medications and has been compliant with meds. Mental Status Exam: General Appearance: Patient appears to be stated age, wears glasses, is alert, less tearful today and more constricted. Superficial. Patient appears to have improving hygiene and grooming. Behavior: Patient is seated without any agitated behavior. Patient is more constricted today. Superficial. Speech: Patient's speech is fluent and nonpressured. Mood/Affect: Patient reports their mood is depressed and anxious, improving mildly, affect is congruent Suicidality/Homicidality: Patient denies having any homicidal ideation intent or plan. Denies any suicidal ideations intent or plan Perceptions: Patient denies any visual hallucinations and denies any auditory hallucinations Though content/process: Minimizes her symptoms, guarded/evasive. Denying any paranoia or delusions. Memory and concentration: AOX3, grossly intact for the purposes of this session. Judgment and insight: poor/impulsive, improving mildly Assessment Major depressive disorder, without psychotic features Cluster B personality traits Cannabis use disorder Anxiety disorder unspecified Plan: -Patient continues to meet criteria for inpatient psychiatric admission for symptom stabilization and safety. Currently awaiting deferral with business attorney today and court date. -Medications: Will increase Zoloft to 100 mg for mood/anxiety, Vistaril when necessary for anxiety. Continue with melatonin 5 mg daily at bedtime for insomnia. -When necessary Ativan and Haldol for agitation/aggression. -NRT - not needed as patient does not smoke. -SW on board for discharge planning. Encouraged the patient to participate in milieu. Will await deferral set for today with business attorney and court date. will need a family meeting with mother over the phone prior to d/c
[2020-11-11] MEDS: ACETAMINOPHEN TAB 325 MG TAB PO PRN ×2 (12:30→20:42)
[2020-11-11] MEDS: MELATONIN 5 MG TABLET PO SCH (20:41)
[2020-11-12] MEDS: SERTRALINE 100 MG TAB PO SCH (08:06)
--- NOTE | 2020-11-12 08:45 | P.PN ---
Progress Note - Text Progress Note Date: 11/12/20 Interval History: Patient was seen standing in line before getting her medications as morning and was directable and agreeable to speak with report writer in the office. Patient continues to have a constricted affect today however claims that she is doing better overall. She states that she has been speaking with her mother every day over the phone and they're trying to resolve their issues. She spoke more about her abandonment issues with her mom however claims that "it wasn't her fault" and states that they are trying to work together to resolve this problem. She also claims that she was scared as she did not have money to pay back her mother. She was fairly concrete with her answers however was attempting to cooperate more during the interview. She claims that her mood has been gradually improving on the unit. She claims that her anxiety has been improving. She claims that she has been trying to go to groups and participate as best as she can. She states that she was able to sleep better last night. At this time patient denies any suicidal or homical ideations, intent or plan. Patient denies any auditory, visual hallucinations and denies any paranoia or delusions. Patient denies any side effects from the medications and has been compliant with meds. Mental Status Exam: General Appearance: Patient appears to be stated age, wears glasses, is alert, more directable today and more constricted. Superficial. Patient appears to have improving hygiene and grooming. Behavior: Patient is seated without any agitated behavior. Patient is more constricted today. Superficial. Speech: Patient's speech is fluent and nonpressured. Mood/Affect: Patient reports their mood is improving mildly, affect is congruent and constricted Suicidality/Homicidality: Patient denies having any homicidal ideation intent or plan. Denies any suicidal ideations intent or plan Perceptions: Patient denies any visual hallucinations and denies any auditory hallucinations Though content/process: More goal oriented today, logical. Denying any paranoia or delusions. Memory and concentration: AOX3, grossly intact for the purposes of this session. Judgment and insight: poor/impulsive, improving mildly Assessment Major depressive disorder, without psychotic features Cluster B personality traits Cannabis use disorder Anxiety disorder unspecified Plan: -Patient continues to meet criteria for inpatient psychiatric admission for symptom stabilization and safety. Currently awaiting deferral with [place] attorney today and court date. -Medications: Continue with Zoloft to 100 mg for mood/anxiety, Vistaril when necessary for anxiety. Continue with melatonin 5 mg daily at bedtime for inso mnia. -When necessary Ativan and Haldol for agitation/aggression. -NRT - not needed as patient does not smoke. -SW on board for discharge planning. Encouraged the patient to participate in milieu. Patient deferred with [place] attorney on 11/11/20. will need a family meeting with mother over the phone prior to d/c, likely discharge tomorrow.
[2020-11-12] MEDS: MELATONIN 5 MG TABLET PO SCH (21:07)
[2020-11-13 06:11] VITALS: TEMP 97.2
[2020-11-13] MEDS: SERTRALINE 100 MG TAB PO SCH (08:56)
[2020-11-13 08:59] VITALS: BP 124/74; PULSE 115; RESP 16
--- NOTE | 2020-11-13 11:03 | P.DS ---
Providers Date of admission: 11/09/20 21:33 Expected date of discharge: 11/13/20 Attending physician: Beto Phelan MD Consults: 11/09/20 21:51 Consult Physician Routine Consulting Provider: Tree Fernández Consult Reason/Comments: medical management Do you want consulting provider notified?: Yes Primary care physician: Stated None - Discharge Diagnosis(es) (1) Major depressive disorder without psychotic features Current Visit: Yes Status: Acute Priority: High (2) Cluster B personality disorder Current Visit: Yes Status: Acute Priority: Medium (3) Cannabis use disorder, mild, abuse Current Visit: Yes Status: Acute Priority: Medium (4) Anxiety disorder Current Visit: Yes Status: Acute Priority: Medium Hospital Course: Admission HPI: Admission note was completed by job specification writer "Patient is a 20-year-old female who currently lives in a house with a roommate's single has no kids and is unemployed and about to attend college. Patient presented to the hospital y esterday after an overdose/suicide attempt. Patient apparently had taken a "handful of Flexeril" according to ER report in a suicide attempt. Patient was endorsing at that time personal stressors in her life. Patient's UDS is positive for marijuana. Patient was petitioned by a logistics officer who claims that the patient was "laying on the ground unable to move. She stated she took 30 cyclobenzaprine and "didn't want to be here anymore". The patient also stated that patient was "attempting to kill herself, she stated she could not feel her face her legs". Patient was admitted to the mental health unit involuntarily and agreeable to speak with job specification writer this morning. Patient appeared to be fairly tearful and argumentative with job specification writer. She was fairly guarded/evasive and was denying the overdose being a suicide attempt. She repeatedly stated that "you can call my therapist or my family members and they'll tell you I wasn't trying to kill myself". She claimed that she was in an argument with her biological mother as she has "resentment towards her" and also spoke of abandonment issues that she is dealing with as she claims that her mother had left her in the past. She states that she was in foster care for 6 years. She also claims that she borrowed money from her mother and when her mother asked her to pay it back she stated that "I don't have any money to pay her". She claims that she was arguing with her over the phone and then after hanging up the phone she saw her roommates Flexeril bottle and took a handful of pills and then claims that she called the police afterwards. She states that "it was a stupid decision and I was trying to teach my mother a lesson". She states that she is not on any medications currently however states that her psychiatrist has prescribed her medications and it is "waiting for me and the pharmacy". She states that she is feeling anxious and depressed. She repeatedly minimized her symptoms and was tearful and demanding discharge several times during conversation. She states that her sleep is "fine". She admits to guilt. Patient denies any suicidal or homicidal ideations intent or plan. At this time patient denies any auditory or visual hallucinations. Patient denies any flight of ideas racing thoughts and increased in goal directed behavior. Patient admits to using marijuana frequently and denies any other recreational drug use including cigarettes." Hospital course: Upon admission to the unit patient was initially depressed tearful and anxious. Patient was however admitted involuntarily and a second certificate was completed and faxed to the court. Patient ended up signing a deferral with her associate attorney and agreeable to continue on with treatment. Patient got along well with other patients on the unit and followed unit protocol. Patient was compliant with the medications and denied any side effects throughout hospital course. Patient was started on Zoloft and titrate up the dose of 100 mg daily for mood/anxiety, melatonin was started at 5 mg daily at bedtime for insomnia. Patient spoke of her stressors and engaged in therapy both group and individual. Patient was also seen by medical team for history and physical exam. Throughout the course of the hospitalization patient gradually improved with regards to mood, anxiety, sleep and became more future oriented with improved insight and judgment. On the day of discharge patient denied any suicidal or homicidal ideations intent or plan denied any auditory or visual hallucinations. Patient endorsed wanting to live for her future and her family. The patient denied any access to guns or weapons. Patient denied any paranoia and did not endorse any delusions. Patient does have a significant history of substance abuse and was counseled on abstaining from all substances including alcohol and marijuana. Patient was also counseled on the medications and need for regular compliance and was encouraged to follow-up with their outpatient appointment for mental health and also for primary care. Prior to discharge a family meeting will be arranged by social media community manager to answer any questions and ensure safety upon discharge. Mental status exam: General Appearance: Patient appears to be wearing glasses, in street clothing, stated age is alert, pleasant, and cooperative. Patient is in no acute distress and has improved hygiene and grooming Behavior: Patient is calmly seated without any agitated behavior. Speech: Patient's speech is fluent and nonpressured. Monotone at times. Mood/Affect: Patient reports their mood is "good", affect is congruent Suicidality/Homicidality: Patient denies having any suicidal or homicidal ideation intent or plan. Perceptions: Patient denies any auditory or visual hallucinations. Though content/process: There is no evidence of any delusional thought content and thought process is linear and goal-directed. more future oriented Memory and concentration: AOX3, grossly intact for the purposes of this session. Can spell "WORLD" backwards correctly. Judgment and insight: chronically poor, however has improved with guarded prognosis Impression: Major depressive disorder, without psychotic features Cluster B personality traits Cannabis use disorder Anxiety disorder unspecified Plan: -Continue with discharge today as patient has improved and stabilized psychiatrically and is not currently an imminent threat to herself and/or others. Patient will remain at chronically elevated risk for harm to self and/or others due to her impulsivity and substance abuse. -Continue medications: Continue with Zoloft 100 mg daily for mood/anxiety, melatonin 5 mg daily at bedtime for insomnia. -Patient was counseled on the need for medication compliance and appropriate follow-up at mental health and also primary care for medical issues. Patient verbalized understanding and agreed. -Social work to arrange for and conduct family meeting to ensure safety upon discharge and answer any questions/concerns. Social work also to arrange for patients follow up appointments for psychiatric care along with follow up with primary care provider. Patient was encouraged to continue with outpatient therapy to work on coping skills and distress tolerance. -Patient counseled on abstaining from recreational drugs and marijuana and alcohol. Was informed/educated on the adverse effects on their physical and ment al health. Patient verbally agreed and understood. Patient was offered substance abuse treatment however declined at this time. -Patient was instructed to return to the hospital or seek immediate medical care if their psychiatric or medical symptoms do worsen or reoccur. Allergies Allergy/AdvReac Type Severity Reaction Status Date / Time bee venom protein (honey bee) Allergy Swelling Verified 11/10/20 02:06 Laboratory Results WBC 9.6 k/uL (4.0-11.0) 11/09/20 13:50 RBC 5.02 m/uL (3.80-5.40) 11/09/20 13:50 Hgb 13.7 gm/dL (11.4-16.0) 11/09/20 13:50 Hct 40.2 % (34.0-46.0) 11/09/20 13:50 MCV 80.1 fL (80.0-100.0) 11/09/20 13:50 MCH 27.4 pg (25.0-35.0) 11/09/20 13:50 MCHC 34.2 g/dL (31.0-37.0) 11/09/20 13:50 RDW 13.6 % (11.5-15.5) 11/09/20 13:50 Plt Count 296 k/uL (150-450) 11/09/20 13:50 MPV 9.2 11/09/20 13:50 Neutrophils % 75 % 11/09/20 13:50 Lymphocytes % 18 % 11/09/20 13:50 Monocytes % 5 % 11/09/20 13:50 Eosinophils % 1 % 11/09/20 13:50 Basophils % 0 % 11/09/20 13:50 Neutrophils # 7.2 k/uL (1.3-7.7) 11/09/20 13:50 Lymphocytes # 1.7 k/uL (1.0-4.8) 11/09/20 13:50 Monocytes # 0.4 k/uL (0-1.0) 11/09/20 13:50 Eosinophils # 0.1 k/uL (0-0.7) 11/09/20 13:50 Basophils # 0.0 k/uL (0-0.2) 11/09/20 13:50 Sodium 137 mmol/L (137-145) 11/09/20 13:50 Potassium 3.8 mmol/L (3.5-5.1) 11/09/20 13:50 Chloride 108 mmol/L (98-107) H 11/09/20 13:50 Carbon Dioxide 17 mmol/L (22-30) L 11/09/20 13:50 Anion Gap 12 mmol/L 11/09/20 13:50 BUN 9 mg/dL (7-17) 11/09/20 13:50 Creatinine 0.55 mg/dL (0.52-1.04) 11/09/20 13:50 Est GFR (CKD-EPI)AfAm >90 (>60 ml/min/1.73 sqM) 11/09/20 13:50 Est GFR (CKD-EPI)NonAf >90 (>60 ml/min/1.73 sqM) 11/09/20 13:50 Glucose 104 mg/dL (74-99) H 11/09/20 13:[address] Glu mg/dL 94 11/10/20 06:25 Hemoglobin A1c 4.9 % (4.0-6.0) 11/10/20 06:25 Calcium 9.8 mg/dL (8.4-10.2) 11/09/20 13:50 Total Bilirubin 0.6 mg/dL (0.2-1.3) 11/09/20 13:50 AST 19 U/L (14-36) 11/09/20 13:50 ALT 14 U/L (4-34) 11/09/20 13:50 Alkaline Phosphatase 59 U/L (38-126) 11/09/20 13:50 Total Protein 7.4 g/dL (6.3-8.2) 11/09/20 13:50 Albumin 4.6 g/dL (3.5-5.0) 11/09/20 13:50 Triglycerides 62 mg/dL (<150) 11/10/20 06:25 Cholesterol 170 mg/dL (<200) 11/10/20 06:25 LDL Cholesterol, Calc 95 mg/dL (0-99) 11/10/20 06:25 HDL Cholesterol 63 mg/dL (40-60) H 11/10/20 06:25 Urine Color Light Yellow 11/09/20 13:50 Urine Appearance Cloudy (Clear) H 11/09/20 13:50 Urine pH 6.0 (5.0-8.0) 11/09/20 13:50 Ur Specific [place] 1.006 (1.001-1.035) 11/09/20 13:50 Urine Protein Trace (Negative) H 11/09/20 13:50 Urine Glucose (UA) Negative (Negative) 11/09/20 13:50 Urine Ketones Trace (Negative) H 11/09/20 13:50 Urine Blood Large (Negative) H 11/09/20 13:50 Urine Nitrite Negative (Negative) 11/09/20 13:50 Urine Bilirubin Negative (Negative) 11/09/20 13:50 Urine Urobilinogen <2.0 mg/dL (<2.0) 11/09/20 13:50 Ur Leukocyte Esterase Large (Negative) H 11/09/20 13:50 Urine RBC 17 /hpf (0-5) H 11/09/20 13:50 Urine WBC 67 /hpf (0-5) H 11/09/20 13:50 Ur Squamous Epith Cells 16 /hpf (0-4) H 11/09/20 13:50 Urine Bacteria Rare /hpf (None) H 11/09/20 13:50 Urine Mucus Rare /hpf (None) H 11/09/20 13:50 Urine HCG, Qual Not Detected (Not Detectd) 11/09/20 13:50 Salicylates <1.0 mg/dL 11/09/20 13:50 Urine Opiates Screen Not Detected (NotDetected) 11/09/20 13:50 Ur Oxycodone Screen Not Detected (NotDetected) 11/09/20 13:50 Urine Methadone Screen Not Detected (NotDetected) 11/09/20 13:50 Ur Propoxyphene Screen Not Detected (NotDetected) 11/09/20 13:50 Acetaminophen <10.0 ug/mL 11/09/20 13:50 Ur Barbiturates Screen Not Detected (NotDetected) 11/09/20 13:50 U Tricyclic Antidepress Not Detected (NotDetected) 11/09/20 13:50 Ur Phencyclidine Scrn Not Detected (NotDetected) 11/09/20 13:50 Ur Amphetamines Screen Not Detected (NotDetected) 11/09/20 13:50 U Methamphetamines Scrn Not Detected (NotDetected) 11/09/20 13:50 U Benzodiazepines Scrn Not Detected (NotDetected) 11/09/20 13:50 Urine Cocaine Screen Not Detected (NotDetected) 11/09/20 13:50 U Marijuana (THC) Screen Detected (NotDetected) H 11/09/20 13:50 Serum Alcohol <10 mg/dL 11/09/20 13:50 Coronavirus (PCR) Not Detected (Not Detectd) 11/09/20 14:21 Vital Signs Temp 97.2 F L 11/13/20 06:09 Pulse 115 H 11/13/20 08:58 Resp 16 11/13/20 08:58 BP 124/74 11/13/20 08:58 Pulse Ox 98 11/09/20 21:00 Patient Condition at Discharge: Stable Plan - Discharge Summary Discharge Rx Participant: No New Discharge Prescriptions: New Melatonin 5 mg PO HS 30 Days tablet Acetaminophen Tab [Tylenol] 650 mg PO Q4HR PRN tab PRN Reason: Pain/Discomfort Albuterol Inhaler [Ventolin Hfa Inhaler] 2 puff INHALATION RT-QID PRN puff PRN Reason: Shortness Of Breath Sertraline [Zoloft] 100 mg PO DAILY 30 Days tab Discontinued Albuterol Sulfate [Proair Hfa] 2 puff INHALATION RT-QID PRN PRN Reason: Shortness Of Breath methylPREDNISolone Dose Pack [Medrol Dose Pack] 4 mg PO DIRECTED #21 package Ibuprofen [Motrin] 600 mg PO Q8HR PRN #20 tab PRN Reason: Pain Discharge Medication List Acetaminophen Tab [Tylenol] 650 mg PO Q4HR PRN tab 11/13/20 [Rx] Albuterol Inhaler [Ventolin Hfa Inhaler] 2 puff INHALATION RT-QID PRN puff 11/13/20 [Rx] Melatonin 5 mg PO HS 30 Days tablet 11/13/20 [Rx] Sertraline [Zoloft] 100 mg PO DAILY 30 Days tab 11/13/20 [Rx] Follow up Appointment(s)/Referral(s): intake,intake [Other] - 12/05/20 3:[address] [facility] [Outside] - 11/18/20 10:00 am ([place] by phone) None,Stated [Primary Care Provider] - 1-2 days Patient Instructions/Handouts: Mood Disorders (DC), Depression (DC), Anxiety (ED) Activity/Diet/Wound Care/Special Instructions: Activity and diet as tolerated. Avoid the use of street drugs and alcohol. Take all medications as prescribed. When you are in need of refills on your medications please contact your medical provider and/or outpatient psychiatrist to have this done. Please go to scheduled outpatient appointment for aftercare treatment. If symptoms return or become worse, call the crisis line at and/or go to the nearest emergency room for evaluation. Discharge Disposition: HOME SELF-CARE
== END 2020-11-13 12:47 | disposition home or self-care (01) | DRG 918 ==
LOC: EC 12:44 → 3MHU 21:33
PROVIDERS: ADMIT Psychiatry & Neurology Psychiatry; ATTEND Psychiatry & Neurology Psychiatry
DX: T48.1X2A Poisoning by skeletal muscle relaxants [neuromuscular blocking agents], intentional self-harm, initial encounter (principal); E87.2 Acidosis; F20.9 Schizophrenia, unspecified; F31.9 Bipolar disorder, unspecified; F60.89 Other specific personality disorders; Z20.822 Contact with and (suspected) exposure to COVID-19; F43.10 Post-traumatic stress disorder, unspecified; J45.909 Unspecified asthma, uncomplicated; F12.10 Cannabis abuse, uncomplicated; G47.00 Insomnia, unspecified; R45.87 Impulsiveness; F17.200 Nicotine dependence, unspecified, uncomplicated; Z91.030 Bee allergy status; Z98.890 Other specified postprocedural states
CPT/HCPCS: 36415; 80053; 80061; 80143; 80179; 80306; 80320; 81001; 81025; 83036; 85025; 87635; 93005; 99285

== ENCOUNTER 2021-04-21 16:14 | Emergency (ER) | payer OTHER ==
[2021-04-21 16:47] VITALS: BP 112/64; PULSE 71; RESP 68; TEMP 97.3
[2021-04-21 17:18] LABS: Anisocytosis Slight; Basophils % (A) 1 %; Eosinophils # (A) 0.1 k/uL (0-0.7); Eosinophils % (A) 2 %; HGB 10.1 gm/dL (11.4-16.0); Hypochromasia Marked; Lymphocytes # (A) 1.6 k/uL (1.0-4.8); Lymphocytes % (A) 28 %; MCH 21.5 pg (25.0-35.0); MCHC 30.6 g/dL (31.0-37.0); MCV 70.2 fL (80.0-100.0); Mean Platelet Volume 8.4; Microcytosis Moderate; Monocytes # (A) 0.3 k/uL (0-1.0); Monocytes % (A) 5 %; Neutrophils # (A) 3.6 k/uL (1.3-7.7); Neutrophils % (A) 63 %; Platelet Count 308 k/uL (150-450); RDW 16.1 % (11.5-15.5); WBC 5.6 k/uL (3.8-10.6)
[2021-04-21 17:31] LABS: ALT 11 U/L (4-34); AST 21 U/L (14-36); African American GFR (CKD) >90 (>60 ml/min/1.73 sqM); Albumin 4.1 g/dL (3.5-5.0); Alkaline Phosphatase 52 U/L (38-126); Anion Gap 8 mmol/L; Blood Urea Nitrogen 12 mg/dL (7-17); Calcium 9.3 mg/dL (8.4-10.2); Carbon Dioxide 20 mmol/L (22-30); Chloride 107 mmol/L (98-107); Glucose 87 mg/dL (74-99); Magnesium 1.8 mg/dL (1.6-2.3); Non-African American GFR(CKD) >90 (>60 ml/min/1.73 sqM); Sodium 135 mmol/L (137-145); Total Bilirubin 0.2 mg/dL (0.2-1.3); Total Protein 6.6 g/dL (6.3-8.2)
[2021-04-21 17:36] LABS: INR 0.9 (<1.2); Prothrombin Time 10.2 sec (9.0-12.0)
[2021-04-21 17:37] LABS: Partial Thromboplastin Time 20.8 sec (22.0-30.0)
--- NOTE | 2021-04-21 17:46 | XR ---
EXAMINATION TYPE: XR chest 2V DATE OF EXAM: 04/21/2021 COMPARISON: 06/30/2020. HISTORY: Chest pain. TECHNIQUE: Frontal and lateral views of the chest are obtained. FINDINGS: There is no focal air space opacity, pleural effusion, or pneumothorax seen. The cardiac silhouette size is within normal limits. The osseous structures are intact. IMPRESSION: No acute cardiopulmonary process.
--- NOTE | 2021-04-21 18:41 | ED ---
Chest Pain HPI - General Chief Complaint: Chest Pain Stated Complaint: Chest Pain/Seizures Time Seen by Provider: 04/21/21 17:38 Source: patient Mode of arrival: ambulatory Limitations: no limitations - History of Present Illness Initial Comments: Patient is a 21-year-old female presents emergency Department with reported right-sided chest pain which has been present for the past 3 days. States the pain is intermittent, described as a pressure without any provocative factors. She admits it makes her feel mildly short of breath. No history of DVT or PE. No cough, fevers or chills. Patient is not on any control. No recent travel. No exposure to Covid. No previous history of cardiac disease. Denies family history of sudden cardiac . No calf pain or swelling. Patient also admits to "seizures. States she's had them for years however they have been daily for the past 2 weeks. She states she feels hot, dizzy and goes unconsc ious. States they are not witnessed. Reports that she's never been evaluated for them. No headaches or visual changes. No unilateral numbness or weakness. No other alleviating, early childhood teacher modifying factors - Related Data Previous Rx's Medication Instructions Recorded Albuterol Inhaler [Ventolin Hfa 2 puff INHALATION RT-QID PRN puff 11/13/20 Inhaler] Allergies Allergy/AdvReac Type Severity Reaction Status Date / Time bee venom protein (honey bee) Allergy Swelling Verified 04/21/21 18:08 Review of Systems ROS Statement: Those systems with pertinent positive or pertinent negative responses have been documented in the HPI. ROS Other: All systems not noted in ROS Statement are negative. EKG Findings - EKG Comments: EKG Findings:: EKG demonstrates sinus tachycardia with ventricular rate of 55. NE of 140. QRS 86. QTC of 396. No acute ST segment elevations or depressions. No signs of WPW or Brugada Past Medical History Past Medical History: No Reported History History of Any Multi-Drug Resistant Organisms: None Reported Past Surgical History: Tonsillectomy Past Psychological History: Bipolar, Depression, PTSD Smoking Status: Current some day smoker General Exam Limitations: no limitations General appearance: alert, in no apparent distress Head exam: Present: atraumatic, normocephalic, normal inspection Eye exam: Present: normal appearance, PERRL, EOMI. Absent: scleral icterus, conjunctival injection, periorbital swelling ENT exam: Present: normal exam, mucous membranes moist Neck exam: Present: normal inspection. Absent: tenderness, meningismus, lymphadenopathy Respiratory exam: Present: normal lung sounds bilaterally. Absent: respiratory distress, wheezes, rales, rhonchi, stridor Cardiovascular Exam: Present: regular rate, normal rhythm, normal heart sounds. Absent: systolic murmur, diastolic murmur, rubs, gallop, clicks GI/Abdominal exam: Present: soft, normal bowel sounds. Absent: distended, tenderness, guarding, rebound, rigid Extremities exam: Present: normal inspection, full ROM, normal capillary refill. Absent: tenderness, pedal edema, joint swelling, calf tenderness Back exam: Present: normal inspection Neurological exam: Present: alert, oriented X3, CN II-XII intact Psychiatric exam: Present: normal affect, normal mood Skin exam: Present: warm, dry, intact, normal color. Absent: rash Course Vital Signs 04/21/21 16:40 Temperature 97.3 F L Pulse Rate 71 Respiratory 68 H Rate Blood Pressure 112/64 O2 Sat by Pulse 99 Oximetry Chest Pain MDM - MDM Upon arrival patient was placed into room 8. History of physical exam is performed. Laboratory studies were conducted and a chest x-rays performed. Laboratory studies are reviewed. Troponin is negative. Patient is perk negative. Chest x-ray demonstrates no acute process. I spoke with the patient regards the diagnosis, differential treatment options. Recommended CT her brain at this time due to numerous seizures however patient refused. Patient is requesting to be discharged home at this time. Instructed her that she needs an MRI and EEG for seizures. Needs an echo for chest pain. Patient must not drive until cleared by a neurolgist. Asked return to the emergency room for any new or worsening symptoms. I did fill the patient's discharge paperwork. The nurse did go into the room to provide them to the patient however it was found that the patient had eloped. Disposition Clinical Impression: Chest pain, New onset seizure Disposition: HOME SELF-CARE Condition: Stable Instructions (If sedation given, give patient instructions): Chest Pain (ED), New-Onset Seizure in Adults (ED) Additional Instructions: Please follow-up with Dr. Aguilar within 2-4 days. You need to have an EEG and MRI for new onset seizures. You must have an echo for your reported chest pain. Return to the emergency room for any new or worsening symptoms. Do not drive until you are okayed by a neurologist to drive Is patient prescribed a controlled substance at d/c from ED?: No Referrals: Melquiades Aguilar Jr, [Primary Care Provider] - 1-2 days Time of Disposition: 18:41
== END 2021-04-21 19:21 | disposition home or self-care (01) ==
LOC: EC 16:14
DX: R07.89 Other chest pain (principal); R56.9 Unspecified convulsions; R06.02 Shortness of breath; F17.200 Nicotine dependence, unspecified, uncomplicated; Z91.030 Bee allergy status
CPT/HCPCS: 36415; 71046; 80053; 83735; 84484; 85025; 85610; 85730; 93005; 99285

== ENCOUNTER 2021-07-08 20:05 | Emergency (ER) | payer OTHER ==
[2021-07-08 20:57] LABS: Anisocytosis Slight; Basophils % (A) 0 %; Eosinophils # (A) 0.2 k/uL (0-0.7); Eosinophils % (A) 1 %; HCT 36.1 % (34.0-46.0); HGB 10.7 gm/dL (11.4-16.0); Hypochromasia Marked; Lymphocytes # (A) 2.6 k/uL (1.0-4.8); Lymphocytes % (A) 23 %; MCH 20.1 pg (25.0-35.0); MCHC 29.5 g/dL (31.0-37.0); MCV 68.2 fL (80.0-100.0); Mean Platelet Volume 7.8; Microcytosis Marked; Monocytes # (A) 0.7 k/uL (0-1.0); Monocytes % (A) 6 %; Neutrophils # (A) 7.6 k/uL (1.3-7.7); Neutrophils % (A) 68 %; Platelet Count 407 k/uL (150-450); WBC 11.2 k/uL (3.8-10.6)
--- NOTE | 2021-07-08 21:00 | ED ---
General Adult HPI - General Chief complaint: Psychiatric Symptoms Stated complaint: Mental Health Time Seen by Provider: 07/08/21 20:17 Source: EMS Mode of arrival: EMS Limitations: no limitations - History of Present Illness Initial comments: Dictation was produced using [employer] dictation software. please excuse any grammatical, word or spelling errors. Chief Complaint: 21-year-old female presents to the emergency department for mario cidal attempt History of Present Illness: 21-year-old female she was brought here for suicidal attempt. Patient states that she took 2 x 25 mg Lamictal tablets and had a seizure. She denies suicidal ideation but she did text a friend told her that she wanted to kill herself. And that she took a bottle pills. Patient denies this. Patient's friend called law enforcement within that patient to the emergency room. Patient has no complaints at this time. Lamictal is her usual prescription. The ROS documented in this emergency department record has been reviewed and confirmed by me. Those systems with pertinent positive or negative responses have been documented in the HPI. All other systems are other negative and/or noncontributory. PHYSICAL EXAM: General Impression: Alert and oriented x3, not in acute distress HEENT: Normocephalic atraumatic, extra-ocular movements intact, pupils equal and reactive to light bilaterally, mucous membranes moist. Cardiovascular: Heart regular rate and rhythm Chest: Able to complete full sentences, no retractions, no tachypnea Abdomen: abdomen soft, non-tender, non-distended, no organomegaly Musculoskeletal: Pulses present and equal in all extremities, no peripheral edema Motor: no focal deficits noted Neurological: CN II-XII grossly intact, no focal motor or sensory deficits noted Skin: Intact with no visualized rashes Psych: Normal affect and mood ED course: 21-year-old female presents to the emergency department for alleged overdose as a suicidal attempt. Patient denies this but did tell a friend that this happened. Vital signs upon arrival shows heart rate of 120, worse vital signs within acceptable limits. Laboratory evaluation obtained. CBC, metabolic panel is unremarkable. Tox labs are negative. HCG is negative. Patient observed in emergency department for possibly 2 hours in stable medical condition. Patient medically cleared for EPS evaluation. EKG interpretation: Ventricular rate 85, normal sinus rhythm, CA interval 124, QRS 82, QTC 423. No CA prolongation, no QTC prolongation, no ST or T-wave changes noted. Overall, this EKG is unremarkable Patient observed in emergency department for several hours per she was evaluated by EPS recommended discharge. - Related Data Home Medications Medication Instructions Recorded Confirmed ARIPiprazole 5 mg PO HS 07/08/21 07/08/21 Venlafaxine HCl ER [Effexor Xr] 75 mg PO DAILY 07/08/21 07/08/21 lamoTRIgine [LaMICtal] 25 mg PO BID 07/08/21 07/08/21 Allergies Allergy/AdvReac Type Severity Reaction Status Date / Time bee venom protein (honey bee) Allergy Swelling Verified 07/08/21 20:15 Review of Systems ROS Statement: Those systems with pertinent positive or pertinent negative responses have been documented in the HPI. ROS Other: All systems not noted in ROS Statement are negative. Past Medical History Past Medical History: No Reported History History of Any Multi-Drug Resistant Organisms: None Reported Past Surgical History: No Surgical Hx Reported, Tonsillectomy Past Psychological History: Bipolar, Depression, PTSD Smoking Status: Current some day smoker General Exam Limitations: no limitations Course Vital Signs 07/08/21 07/08/21 20:08 22:12 Temperature 97.8 F 98.7 F Pulse Rate 120 H 80 Respiratory 18 16 Rate Blood Pressure 138/92 109/65 O2 Sat by Pulse 99 99 Oximetry Medical Decision Making - Lab Data Result diagrams: 07/08/21 20:32 07/08/21 20:32 Lab Results 07/08/21 07/08/21 07/08/21 Range/Units 20:32 20:32 20:32 WBC 11.2 H (3.8-10.6) k/uL RBC 5.30 (3.80-5.40) m/uL Hgb 10.7 L (11.4-16.0) gm/dL Hct 36.1 (34.0-46.0) % MCV 68.2 L (80.0-100.0) fL MCH 20.1 L (25.0-35.0) pg MCHC 29.5 L (31.0-37.0) g/dL RDW 16.0 H (11.5-15.5) % Plt Count 407 (150-450) k/uL MPV 7.8 Neutrophils % 68 % Lymphocytes % 23 % Monocytes % 6 % Eosinophils % 1 % Basophils % 0 % Neutrophils # 7.6 (1.3-7.7) k/uL Lymphocytes # 2.6 (1.0-4.8) k/uL Monocytes # 0.7 (0-1.0) k/uL Eosinophils # 0.2 (0-0.7) k/uL Basophils # 0.0 (0-0.2) k/uL Hypochromasia Marked Anisocytosis Slight Microcytosis Marked Sodium 137 (137-145) mmol/L Potassium 3.8 (3.5-5.1) mmol/L Chloride 107 (98-107) mmol/L Carbon Dioxide 22 (22-30) mmol/L Anion Gap 8 mmol/L BUN 11 (7-17) mg/dL Creatinine 0.58 (0.52-1.04) mg/dL Est GFR (CKD-EPI)AfAm >90 (>60 ml/min/1.73 sqM) Est GFR (CKD-EPI)NonAf >90 (>60 ml/min/1.73 sqM) Glucose 116 H (74-99) mg/dL Calcium 9.6 (8.4-10.2) mg/dL HCG, Quant <2.4 mIU/mL Salicylates <1.0 mg/dL Urine Opiates Screen Not Detected (NotDetected) Ur Oxycodone Screen Not Detected (NotDetected) Urine Methadone Screen Not Detected (NotDetected) Ur Propoxyphene Screen Not Detected (NotDetected) Acetaminophen <10.0 ug/mL Ur Barbiturates Screen Not Detected (NotDetected) U Tricyclic Antidepress Not Detected (NotDetected) Ur Phencyclidine Scrn Not Detected (NotDetected) Ur Amphetamines Screen Not Detected (NotDetected) U Methamphetamines Scrn Not Detected (NotDetected) U Benzodiazepines Scrn Not Detected (NotDetected) Urine Cocaine Screen Not Detected (NotDetected) U Marijuana (THC) Screen Detected H (NotDetected) Serum Alcohol <10 mg/dL Disposition Clinical Impression: Depression Disposition: HOME SELF-CARE Instructions (If sedation given, give patient instructions): Depression (ED) Is patient prescribed a controlled substance at d/c from ED?: No Referrals: Melquiades Aguilar Jr, DO [Primary Care Provider] - 1-2 days
[2021-07-08 21:10] LABS: Acetaminophen <10.0 ug/mL; African American GFR (CKD) >90 (>60 ml/min/1.73 sqM); Alcohol <10 mg/dL; Anion Gap 8 mmol/L; Blood Urea Nitrogen 11 mg/dL (7-17); Calcium 9.6 mg/dL (8.4-10.2); Carbon Dioxide 22 mmol/L (22-30); Chloride 107 mmol/L (98-107); Glucose 116 mg/dL (74-99); Non-African American GFR(CKD) >90 (>60 ml/min/1.73 sqM); Potassium 3.8 mmol/L (3.5-5.1); Salicylate <1.0 mg/dL; Sodium 137 mmol/L (137-145)
[2021-07-08 21:26] LABS: HCG,Quantitative Serum <2.4 mIU/mL
[2021-07-08 22:15] VITALS: BP 109/65; PULSE 80; RESP 16; TEMP 98.7
[2021-07-08 22:17] LABS: Amphetamine Screen,Urine Not Detected (NotDetected); Barbiturate Screen,Urine Not Detected (NotDetected); Benzodiazepines Screen,Urine Not Detected (NotDetected); Cocaine Screen,Urine Not Detected (NotDetected); Methadone Screen, Urine Not Detected (NotDetected); Opiate Screen,Urine Not Detected (NotDetected); Oxycodone Screen, Urine Not Detected (NotDetected); Phencyclidine Screen,Urine Not Detected (NotDetected); Tricyclic Antidepressant,Urine Not Detected (NotDetected); Urn Cannabinoid Scrn Detected (NotDetected)
== END 2021-07-09 00:10 | disposition home or self-care (01) ==
LOC: EC 20:05
DX: F32.9 Major depressive disorder, single episode, unspecified (principal); F17.200 Nicotine dependence, unspecified, uncomplicated; Z91.018 Allergy to other foods
CPT/HCPCS: 82075; 36415; 93005; 80048; 85025; 84702; 80306; 80143; 80179; 99285; G0480; 80320; 99284

== ENCOUNTER 2021-08-14 08:23 | Emergency (ER) | payer OTHER ==
[2021-08-14 08:31] VITALS: BP 114/75; PULSE 85; RESP 18; TEMP 98.6
--- NOTE | 2021-08-14 09:28 | ED ---
ENT HPI - General Chief complaint: ENT Stated complaint: nausea, sore throat Time Seen by Provider: 08/14/21 08:34 Source: patient, RN notes reviewed Mode of arrival: ambulatory Limitations: no limitations - History of Present Illness Initial comments: Patient is a 21-year-old female that presents to the emergency department complaining of cough congestion sore throat nausea for the last 2 days. She notes she presented to emergency room to get tested for Covid. She was otherwise well-appearing. She denied any chest pain shortness breath headache diarrhea constipation fever fatigue chills. - Related Data Home Medications Medication Instructions Recorded Confirmed ARIPiprazole 5 mg PO HS 07/08/21 07/08/21 Venlafaxine HCl ER [Effexor Xr] 75 mg PO DAILY 07/08/21 07/08/21 lamoTRIgine [LaMICtal] 25 mg PO BID 07/08/21 07/08/21 Allergies Allergy/AdvReac Type Severity Reaction Status Date / Time bee venom protein (honey bee) Allergy Swelling Verified 08/14/21 08:31 Review of Systems ROS Statement: Those systems with pertinent positive or pertinent negative responses have been documented in the HPI. ROS Other: All systems not noted in ROS Statement are negative. Past Medical History Past Medical History: No Reported History History of Any Multi-Drug Resistant Organisms: None Reported Past Surgical History: No Surgical Hx Reported, Tonsillectomy Past Psychological History: Bipolar, Depression, PTSD Smoking Status: Current some day smoker, Vaper Past Alcohol Use History: None Reported Past Drug Use History: Marijuana General Exam Limitations: no limitations General appearance: alert, in no apparent distress, obese Head exam: Present: atraumatic, normocephalic, normal inspection Eye exam: Present: normal appearance, PERRL, EOMI. Absent: scleral icterus, conjunctival injection, periorbital swelling ENT exam: Present: normal exam, mucous membranes moist Neck exam: Present: normal inspection Respiratory exam: Present: normal lung sounds bilaterally. Absent: respiratory distress, wheezes, rales, rhonchi, stridor Cardiovascular Exam: Present: regular rate, normal rhythm, normal heart sounds. Absent: systolic murmur, diastolic murmur, rubs, gallop, clicks GI/Abdominal exam: Present: soft, normal bowel sounds. Absent: distended, tenderness, guarding, rebound, rigid Extremities exam: Present: normal inspection, full ROM, normal capillary refill. Absent: tenderness, pedal edema, joint swelling, calf tenderness Neurological exam: Present: alert, oriented X3 Psychiatric exam: Present: normal affect, normal mood Skin exam: Present: warm, dry, intact, normal color. Absent: rash Course Vital Signs 08/14/21 08:28 Temperature 98.6 F Pulse Rate 85 Respiratory 18 Rate Blood Pressure 114/75 O2 Sat by Pulse 97 Oximetry Medical Decision Making - Medical Decision Making 11-year-old female here for Covid testing was symptoms for 2 days. Covid test ordered. Covid positive. Patient was no longer in her room when I went to discuss lab results and possible monoclonal antibody infusion. Patient left AMA - Lab Data Lab Results 08/14/21 Range/Units 08:34 Coronavirus (PCR) Detected A (Not Detectd) Disposition Clinical Impression: COVID Disposition: Left Against Medical Advice Condition: Stable Is patient prescribed a controlled substance at d/c from ED?: No Referrals: Melquiades Aguilar Jr, [Primary Care Provider] - 1-2 days Time of Disposition: 09:45
== END 2021-08-14 09:30 | disposition left against medical advice (07) ==
LOC: EC 08:23
DX: U07.1 COVID-19 (principal); F17.290 Nicotine dependence, other tobacco product, uncomplicated; Z53.29 Procedure and treatment not carried out because of patient's decision for other reasons; Z91.030 Bee allergy status
CPT/HCPCS: 87635; 99283